=== PATIENT | male | born 1975 | race African-American/Black ===

== ENCOUNTER 2016-10-21 08:02 | Emergency (ER) | payer SELFPAY ==
[~2016-10-21] VITALS: Ht 185.4 cm; Wt 77.5 kg
[~2016-10-21 08:02] MED LIST: FAMO-18 PO; METO10TA92 PO; OMEP20CA9 PO; ONDA4TAB35 PO; PANT40TA3 PO; UDMYL PO
[2016-10-21 08:09] VITALS: Ht 185.4 cm; Wt 77.5 kg
[2016-10-21 09:02] LABS: URINE BLOOD (Dip) POC Negative (NEGATIVE)
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
--- NOTE | 2016-10-21 10:04 | RADRPT ---
PROCEDURE: US Scrotum. CLINICAL INDICATION: Pain TECHNIQUE: Multiple sonographic images of the scrotal region were obtained utilizing a linear arra y transducer with grayscale and color-flow and a Doppler imaging. The images were reviewed on a high -resolution PACS workstation. COMPARISON: No prior studies are available for comparison. FINDINGS: The right testicle is well visualized and has a normal echotexture. No focal areas of abnormal echog enicity are visualized. The right testicle measures measures 3.2 x 2.4 x 2.8 cm. There is normal col or-flow. The right epididymis is visualized and unremarkable in appearance. There is normal color-fl ow. The left testicle is well visualized and has a normal echotexture. No focal areas abnormal echogenic ity are visualized. The left testicle measures measures 3.7 x 1.8 x 3.5 cm. There is normal color-fl ow. The left epididymis is visualized and is unremarkable in appearance. There is normal color-flow. There are mild bilateral hydroceles, right greater than left. RPTAT: AA IMPRESSION: Normal flow in the testicles. Mild bilateral hydroceles, right greater than left. .Wesley Easley MD, Date Time Electronically viewed and signed by .Wesley Easley MD, MD on 10/21/2016 10:03 .S/
[2016-10-21] MEDS ORDERED: CEPH-443 PO (10:20)
[2016-10-21] MEDS ORDERED: BACTDS PO (10:20)
[2016-10-21] MEDS ORDERED: NEOM1PAC TP (10:21)
[2016-10-21] MEDS ORDERED: IBUP-1542 PO (10:22)
[2016-10-21] MEDS ORDERED: LIDOCAINE 1% (MDV) 20 ML INJ SC ONE (10:30)
[2016-10-21] MEDS ORDERED: CEFTRIAXONE 250 MG INJ IM ONE (10:30)
[2016-10-21] MEDS ORDERED: AZITHROMYCIN 250 MG TAB PO ONE (10:30)
== END 2016-10-21 11:02 | disposition home or self-care (01) ==
LOC: FTE 08:02
DX: N50.812 Left testicular pain (principal)
CPT/HCPCS: 76870; 81003; 87591; 96372; 99285; J0696

== ENCOUNTER 2017-05-28 23:57 | Emergency (ER) | payer OTHER ==
[~2017-05-28] VITALS: Ht 185.4 cm; Wt 74.0 kg
[~2017-05-28 23:57] MED LIST changes: +BACTDS PO; +CEPH-443 PO; -FAMO-18 PO; +FAMO-96 PO; +IBUP-1542 PO; +NEOM1PAC TP
[2017-05-29 00:40] VITALS: Ht 185.4 cm; Wt 74.0 kg
[2017-05-29] MEDS ORDERED: SOD CHLORIDE 0.9% 1,000 ML IV STA (02:31)
[2017-05-29] MEDS ORDERED: ONDANSETRON 4 MG INJ IV STA (02:31)
[2017-05-29] MEDS ORDERED: morphine 4 MG/ML VIAL IV STA (02:31)
[2017-05-29 03:12] LABS: BASOPHIL # 0.1 10^3/ul (0.0-0.1); BASOPHILS % 0.9 % (0.0-2.0); EOSINOPHILS # 0.5 10^3/ul (0.0-0.5); EOSINOPHILS % 9.5 % (0.0-7.0); HEMATOCRIT 39.7 % (42.0-52.0); HEMOGLOBIN 13.6 g/dl (14.0-18.0); LYMPHOCYTES # 2.3 10^3/ul (0.8-2.9); LYMPHOCYTES % 43.1 % (15.0-51.0); MEAN CORPUSCULAR HEMOGLOBIN 32.1 pg (29.0-33.0); MEAN CORPUSCULAR HGB CONC 34.3 g/dl (32.0-37.0); MEAN CORPUSCULAR VOLUME 93.6 fl (82.0-101.0); MEAN PLATELET VOLUME 8.9 fl (7.4-10.4); MONOCYTE # 0.5 10^3/ul (0.3-0.9); MONOCYTES % 9.6 % (0.0-11.0); NEUTROPHILS % 36.7 % (39.0-77.0); PLATELET COUNT 299 10^3/UL (140-415); RED BLOOD COUNT 4.24 10^6/ul (4.70-6.10); RED CELL DISTRIBUTION WIDTH 12.1 % (11.5-14.5); WHITE BLOOD COUNT 5.3 10^3/ul (4.8-10.8)
[2017-05-29 03:28] LABS: ALBUMIN/GLOBULIN RATIO 1.21; CALCIUM 9.3 mg/dl (8.4-10.2); CREATININE 1.01 mg/dl (0.61-1.24); POTASSIUM 4.2 mmol/L (3.5-5.1); TOTAL PROTEIN 7.3 g/dl (6.1-8.1)
[2017-05-29 04:09] LABS: ADD UMIC YES; UR ASCORBIC ACID NEGATIVE (NEGATIVE); UR BILIRUBIN (Dip) NEGATIVE (NEGATIVE); UR BLOOD (Dip) NEGATIVE (NEGATIVE); UR CLARITY CLEAR (CLEAR); UR COLOR STRAW (YELLOW); UR GLUCOSE (Dip) NEGATIVE (NEGATIVE); UR KETONES (Dip) NEGATIVE (NEGATIVE); UR LEUKOCYTE ESTERASE (Dip) 2+ Leu/ul (NEGATIVE); UR NITRITE (Dip) NEGATIVE (NEGATIVE); UR RBC 2 /HPF (0-5); UR SPECIFIC GRAVITY (Dip) 1.008 (1.003-1.030); UR TOTAL PROTEIN (Dip) NEGATIVE (NEGATIVE); UR UROBILINOGEN (Dip) NEGATIVE (NEGATIVE)
--- NOTE | 2017-05-29 04:10 | RADRPT ---
PROCEDURE: CT ABDOMEN/PELVIS WITHOUT CONTRAST CLINICAL INDICATION: 41-year-old male with abdominal pain. TECHNIQUE: The study was performed utilizing a GE [employer] VCT 64-slice CT scanner. Direct axia l sections were obtained through the abdomen and pelvis without the use of intravenous contrast mate rial. Sagittal and coronal reformations were obtained. One or more of the following dose reduction t echniques were utilized: automated exposure control, adjustment of the mA and/or kV according to pat ient's size or use of iterative reconstruction technique. The images were reviewed on a PACS workst atRundown. CTD/vol = 6.5 mGy; Total Exam DLP = 395.4 mGy-cm. COMPARISON: CT abdomen/pelvis December 27, 2015 FINDINGS: The lung bases are unremarkable. There is no evidence for significant pleural effusion. The liver has a normal size and contour without focal areas of abnormal density. No intrahepatic nor extrahepa tic biliary ductal dilatation is seen. The gallbladder demonstrates no wall thickening nor perichole cystic fluid. No biliary stones are evident. The pancreas is without areas of abnormal attenuation. The spleen is identified and has a normal size without abnormal density. The adrenal glands are unr emarkable. The kidneys are without abnormal density. No hydroureteronephrosis nor nephroureterolithi asis is evident. The urinary bladder contains urine. There is mildly prominent fluid-filled loops of small bowel without evidence for transition point. This is suggestive of an enteritis. There is m ild retained stool within the colon without obstruction. The appendix is visualized and is without abnormal thickening or surrounding inflammatory reaction. There is no significant free fluid. The aortoiliac vessels are without aneurysmal dilatation. Again noted is prominent L4-5 disk protrusion resulting in [id number] central spinal stenosis without significant interval change. IMPRESSION: 1. No CT evidence for obstructive uropathy or renal calculi. 2. Mildly prominent fluid-filled loops of small bowel without obstruction. This is suggestive of a n enteritis. 3. Mild retained stool. 4. No CT evidence for appendicitis. 5. L4-5 disk protrusion resulting in debwcvns-[id number]-vshgrv central spinal stenosis without significant change. .Fred Vargas MD, MD Date Time Electronically viewed and signed by .Fred Vargas MD, on 05/29/2017 04:10 .M/
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
[2017-05-29] MEDS ORDERED: ONDA4TAB14 PO (05:54)
[2017-05-29] MEDS ORDERED: HYDR-902 PO (05:54)
[2017-05-29] MEDS ORDERED: CIPR500T4 PO (05:54)
[2017-05-29 06:11] VITALS: BP 117/64; PULSE 61; RESP 16
== END 2017-05-29 06:05 | disposition home or self-care (01) ==
LOC: E/R 23:57 → FTE 05-29 06:05
DX: R10.9 Unspecified abdominal pain (principal); R11.10 Vomiting, unspecified
CPT/HCPCS: 36415; 74176; 80053; 81001; 83690; 85025; 87086; 96374; 96375; J2270; J2405; J7030

== ENCOUNTER 2017-08-21 02:23 | Emergency (ER) | payer MEDICAID ==
[~2017-08-21] VITALS: Ht 170.2 cm; Wt 70.7 kg
[~2017-08-21 02:23] MED LIST changes: +CIPR500T4 PO; +HYDR-902 PO; +ONDA4TAB14 PO
[2017-08-21 02:29] VITALS: Ht 170.2 cm; Wt 70.7 kg
[2017-08-21] MEDS ORDERED: morphine 4 MG/ML VIAL IV STA (03:50)
[2017-08-21] MEDS ORDERED: ONDANSETRON 4 MG INJ IV STA (03:50)
[2017-08-21] MEDS ORDERED: SOD CHLORIDE 0.9% 500 ML IV STA (03:50)
[2017-08-21 04:08] LABS: BASOPHILS % 0.2 % (0.0-2.0); EOSINOPHILS % 0.4 % (0.0-7.0); HEMATOCRIT 39.2 % (42.0-52.0); HEMOGLOBIN 13.5 g/dl (14.0-18.0); LYMPHOCYTES # 1.7 10^3/ul (0.8-2.9); MEAN CORPUSCULAR HEMOGLOBIN 31.5 pg (29.0-33.0); MEAN CORPUSCULAR HGB CONC 34.4 g/dl (32.0-37.0); MEAN CORPUSCULAR VOLUME 91.4 fl (82.0-101.0); MEAN PLATELET VOLUME 9.4 fl (7.4-10.4); MONOCYTE # 0.6 10^3/ul (0.3-0.9); MONOCYTES % 11.4 % (0.0-11.0); NEUTROPHIL # 2.6 10^3/ul (1.6-7.5); NEUTROPHILS % 52.8 % (39.0-77.0); PLATELET COUNT 271 10^3/UL (140-415); RED BLOOD COUNT 4.29 10^6/ul (4.70-6.10); WHITE BLOOD COUNT 4.8 10^3/ul (4.8-10.8)
[2017-08-21 04:30] LABS: ALBUMIN 4.1 g/dl (3.3-4.9); ALBUMIN/GLOBULIN RATIO 1.32; BILIRUBIN,INDIRECT 0.5 mg/dl (0-1.1); BILIRUBIN,TOTAL 0.5 mg/dl (0.2-1.3); CALCIUM 9.4 mg/dl (8.4-10.2); CREATININE 1.02 mg/dl (0.61-1.24); POTASSIUM 3.6 mmol/L (3.5-5.1); TOTAL PROTEIN 7.2 g/dl (6.1-8.1)
[2017-08-21 04:41] LABS: ADD UMIC YES; UR AMORPHOUS CRYSTAL FEW /HPF (NONE SEEN); UR ASCORBIC ACID NEGATIVE (NEGATIVE); UR BILIRUBIN (Dip) NEGATIVE (NEGATIVE); UR BLOOD (Dip) NEGATIVE (NEGATIVE); UR CLARITY SLIGHTLY CLOUDY (CLEAR); UR COLOR YELLOW (YELLOW); UR GLUCOSE (Dip) NEGATIVE (NEGATIVE); UR KETONES (Dip) 1+ mg/dL (NEGATIVE); UR LEUKOCYTE ESTERASE (Dip) 3+ Leu/ul (NEGATIVE); UR MUCUS MANY /HPF (NONE SEEN); UR NITRITE (Dip) NEGATIVE (NEGATIVE); UR RBC 10 /HPF (0-5); UR SPECIFIC GRAVITY (Dip) 1.029 (1.003-1.030); UR SQUAMOUS EPITHELIAL CELL FEW /HPF (FEW); UR TOTAL PROTEIN (Dip) 1+ mg/dl (NEGATIVE); UR UROBILINOGEN (Dip) 2+ mg/dL (NEGATIVE)
[2017-08-21] MEDS ORDERED: HYDR-902 PO (06:02)
[2017-08-21 06:40] VITALS: BP 128/76; PULSE 64; RESP 20; TEMP 98.3
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
== END 2017-08-21 06:46 | disposition home or self-care (01) ==
LOC: E/R 02:23
DX: R10.13 Epigastric pain (principal); F17.210 Nicotine dependence, cigarettes, uncomplicated; R11.10 Vomiting, unspecified
CPT/HCPCS: 80053; 81001; 83690; 85025; J2270; J2405; J7040; 36415; 96374; 96375

== ENCOUNTER 2017-10-31 14:50 | Emergency (ER) | END 2017-10-31 21:25 | disposition home or self-care (01) ==

== ENCOUNTER 2017-11-02 07:10 | Emergency (ER) | END 2017-11-02 14:40 ==